=== PATIENT | female | born 1970 | race Two or more races ===

== ENCOUNTER → 2019-10-09 | Outpatient (CLI) | payer MEDICAID | END | disposition home or self-care (01) | LOC: Rad HDHVI 11:50 | PROVIDERS: ATTEND Internal Medicine | DX: R42 Dizziness and giddiness (principal); I10 Essential (primary) hypertension; Z86.79 Personal history of other diseases of the circulatory system | CPT/HCPCS: 93880 ==

== ENCOUNTER → 2019-10-26 | Outpatient (CLI) | payer MEDICAID ==
[~2019-10-26] VITALS: Ht 160 cm; Wt 104.3 kg
[~2019-10-26] MED LIST: ADENOSINE 88 MG in GIVE UN-DILUTED 0 ML IV ONE; ADENOSINE 90 MG/30 ML INJ IV ONE
== END | disposition home or self-care (01) ==
LOC: Rad HDHVI 08:05
PROVIDERS: ATTEND Internal Medicine
DX: I11.9 Hypertensive heart disease without heart failure (principal); E11.9 Type 2 diabetes mellitus without complications; R42 Dizziness and giddiness; R07.9 Chest pain, unspecified; E78.00 Pure hypercholesterolemia, unspecified
CPT/HCPCS: 78452; 93005; 93306; 96374; 96375; A9500; J0153

== ENCOUNTER → 2020-07-17 | Outpatient (CLI) | payer MEDICAID | END | disposition home or self-care (01) | LOC: Rad HDHVI 14:07 | PROVIDERS: ATTEND Internal Medicine | DX: I07.1 Rheumatic tricuspid insufficiency (principal); I10 Essential (primary) hypertension; F41.9 Anxiety disorder, unspecified; R07.9 Chest pain, unspecified | CPT/HCPCS: 93306 ==

== ENCOUNTER → 2020-08-13 | Outpatient (CLI) | payer MEDICAID ==
[~2020-08-13] VITALS: Ht 160 cm; Wt 88.9 kg
[~2020-08-13] MED LIST changes: -ADENOSINE 88 MG in GIVE UN-DILUTED 0 ML IV ONE; -ADENOSINE 90 MG/30 ML INJ IV ONE; +ASPI-543 PO; +ATOR40TA52 PO; +HCTZ25T PO; +LOSA-39 PO; +NAP500T PO; +PROP60CA34 PO; +TOPI25TA32 PO; +TRAM50TA2 PO; +VORT10TA PO; +ZOLP10TA PO
[2020-08-13 09:50] VITALS: BP 150/77
--- NOTE | 2020-08-13 09:50 | NUR ---
CLINIC PT ARRIVED TO THE CLINIC FOR LABS, EKG, CXR FOR PRE OP LHC, A/OX4, AMBULATORY, BREATHING IS EVEN AND UNLABORED.
--- NOTE | 2020-08-13 10:02 | NUR ---
EKG DONE BY MAKENZIE ALMANZAR REVIEWED BY AMI MERCER SB [id number]
[2020-08-13 10:26] VITALS: BP 163/64
--- NOTE | 2020-08-13 10:26 | NUR ---
Pre-Op Discharge Summary: See e-MAR for any medications given for this visit. Pre-op orders received and carried out per MD of EKG, LABS and chest xrays. Patient given a copy of EKG with instructions to go to [facility] out patient for further follow up care. NOTE EKG DONE BY MAKENZIE ALMANZAR REVIEWED BY LIZETTE MERCER
[2020-08-13 12:11] LABS: Basophils # (auto) 0.1 10 ^3/uL (0-0.2); Basophils % (auto) 1.2 % (0.0-2.0); Eosinophils # (auto) 0.4 10 ^3/uL (0-0.8); Eosinophils % (auto) 4.9 % (0.0-7.0); Hematocrit 36.3 % (36.0-46.0); Lymphocytes # (auto) 2.5 10 ^3/uL (0.4-5.4); Mean Corpuscular Hemoglobin 30.4 pg (28.0-32.0); Mean Corpuscular Hgb Conc. 33.1 g/dL (32.0-36.0); Mean Corpuscular Volume 91.7 fL (80.0-100.0); Monocytes # (auto) 0.3 10 ^3/uL (0-1.3); Monocytes % (auto) 4.1 % (0.0-12.0); Neutrophils # (auto) 4.8 10 ^3/uL (1.6-8.6); Neutrophils % (auto) 58.8 % (37.0-80.0); Nucleated Red Blood Cells % 0.1 %; Platelet Count (auto) 199 10^3/uL (140-450); Red Blood Cells 3.96 10^6/uL (4.0-5.20); Red Cell Distribution Width 12.8 % (11.8-14.3); White Blood Cell 8.2 10^3/uL (4.4-10.8)
[2020-08-13 12:24] LABS: INR 1.01 (0.9-1.15); Partial Thromboplastin Time 29.9 sec (23.0-31.2)
[2020-08-13 12:27] LABS: Calcium 9.3 mg/dL (8.5-10.1)
== END | disposition home or self-care (01) ==
LOC: Rad HDHVI 09:38
PROVIDERS: ATTEND Internal Medicine
DX: Z01.812 Encounter for preprocedural laboratory examination (principal); Z01.818 Encounter for other preprocedural examination; R07.9 Chest pain, unspecified; Z98.61 Coronary angioplasty status
CPT/HCPCS: 36415; 71046; 80048; 85025; 85610; 85730; 93005; G0463

== ENCOUNTER 2020-08-21 07:14 | Day surgery (SDC) | payer MEDICAID ==
[~2020-08-21] VITALS: Ht 160 cm; Wt 88.9 kg
[2020-08-21] MEDS ORDERED: IOHEXOL 350 MG/ML 100ML IJ ONE (08:18)
[2020-08-21] MEDS ORDERED: LIDOCAINE 2%HCL (LOCAL ANESTH.) INJ 20ML MDV ONE (08:18)
[2020-08-21] MEDS ORDERED: HEPARIN IN NS 1000Units/500mL 1,500 ML ONE (08:18)
[2020-08-21] MEDS ORDERED: ANGIOMAX 250 MG VIAL IV ONE (08:37)
[2020-08-21] MEDS ORDERED: VERAPAMIL 2.5MG/ML INJ 2ML VIAL IV ONE (08:37)
[2020-08-21] MEDS ORDERED: HEPARIN SODIUM (PORCINE) 5000 UNITS/ML 1ML VIAL ONE (08:38)
[2020-08-21] MEDS ORDERED: SODIUM CHL 0.9% 0 ML ONE (08:38)
[2020-08-21] MEDS ORDERED: fentaNYL CITRATE 100 MCG/2 ML VL ONE (08:38)
[2020-08-21] MEDS ORDERED: MIDAZOLAM HCL 1MG/1ML-2 ML VIAL ONE (08:38)
[2020-08-21] MEDS ORDERED: HYDROcodone-ACET 5/325MG TAB PO PRN (09:30)
[2020-08-21] MEDS ORDERED: ONDANSETRON HCL 4 MG/2 ML VIAL IV PRN (09:30)
[2020-08-21] MEDS ORDERED: ACETAMINOPHEN 500 MG TAB PO PRN (09:30)
== END 2020-08-21 12:36 | disposition home or self-care (01) ==
LOC: CATH 07:14
PROVIDERS: ATTEND Internal Medicine
DX: I25.10 Atherosclerotic heart disease of native coronary artery without angina pectoris (principal); I10 Essential (primary) hypertension; E78.5 Hyperlipidemia, unspecified; Z79.899 Other long term (current) drug therapy; Z79.82 Long term (current) use of aspirin; Z20.828 Contact with and (suspected) exposure to other viral communicable diseases; Z88.6 Allergy status to analgesic agent; Z98.890 Other specified postprocedural states; Z68.34 Body mass index [BMI] 34.0-34.9, adult
CPT/HCPCS: 93458; C1887; C1894; J1644; J2250; J3010; J7030; Q9967; U0003; 99152

== ENCOUNTER 2025-05-30 08:24 | Day surgery (SDC) | payer MEDICAID ==
[2025-05-25 11:41] LABS: Hematocrit 39.1 % (36.0-46.0); Hemoglobin 12.8 g/dL (12.2-16.2); Mean Corpuscular Hemoglobin 30.0 pg (28.0-32.0); Mean Corpuscular Volume 91.7 fL (80.0-100.0); Nucleated Red Blood Cells % 0.0 %
[2025-05-25 11:54] LABS: INR 1.05 (0.9-1.15); Partial Thromboplastin Time 27.9 SEC (24.5-34.5); Prothrombin Time 11.1 sec (9.3-11.8)
[2025-05-25 11:58] LABS: Alanine Aminotransferase 16 U/L (7-40); Albumin 5.0 g/dL (3.2-4.8); Alkaline Phosphatase 126 U/L (46-116); Anion Gap 8 (5-15); BUN/Creatinine Ratio 10.5 (10.0-20.0); Bilirubin, Total 0.4 mg/dL (0.2-1.0); Blood Urea Nitrogen 6 mg/dL (9-23); Calcium 9.7 mg/dL (8.7-10.4); Carbon Dioxide 24 mmol/L (20-31); Chloride 107 mmol/L (98-107); Glucose 104 mg/dL (74-106); Potassium 3.8 mmol/L (3.5-5.1); Sodium 139 mmol/L (136-145); Total Protein 7.6 g/dL (5.7-8.2)
[2025-05-25 12:32] LABS: Urine Protein, UAD Negative (Negative)
[~2025-05-30] VITALS: Ht 160 cm; Wt 103.4 kg
[~2025-05-30 08:24] MED LIST changes: +AMLO1TAB21 PO; +CHOL20004 PO; +EZET-10 PO; +FOLI-119 PO; -HCTZ25T PO; +LEFL1TAB3 PO; +LIDO1.8P EX; -LOSA-39 PO; +LOSA-534 PO; +METF-370 PO; -NAP500T PO; +PILO5TAB10 PO; -PROP60CA34 PO; +SEMA2INJ3 SC; +SULF500T57 PO; -TOPI25TA32 PO; -TRAM50TA2 PO; -VORT10TA PO; -ZOLP10TA PO
[2025-05-30] MEDS ORDERED: PROPRANOLOL HCL 1 MG/ML VIAL IV ONE (08:25)
[2025-05-30] MEDS ORDERED: SODIUM CHLORIDE LOCK 10 ML ONE ×2 (08:49→10:34)
[2025-05-30] MEDS ORDERED: ceFAZolin 2 GM/D5W50ml 50 ML IV ONE (08:55)
[2025-05-30] MEDS ORDERED: ONDANSETRON HCL 4 MG/2 ML VIAL ONE (09:25)
[2025-05-30] MEDS ORDERED: LIDOCAINE 1% INJ PF 5ML AMP ONE (09:25)
[2025-05-30] MEDS ORDERED: PROPOFOL 10 MG/ML 20 ML IV ONE ×4 (09:25→10:53)
[2025-05-30] MEDS ORDERED: KETAMINE 50mg/ML 1ml syringe ONE (09:25)
[2025-05-30] MEDS ORDERED: GLYCOPYRROLATE 0.2 MG/ML 1ML VIAL ONE (09:25)
[2025-05-30] MEDS ORDERED: KETOROLAC TROMETH 30 MG/ML 1ML VIAL ONE (09:25)
[2025-05-30] MEDS: GABAPENTIN 300 MG CAP PO ONE (09:30)
[2025-05-30] MEDS: ACETAMINOPHEN IV 1000 MG/100ML (10MG/ML) IV ONE (09:30)
[2025-05-30] MEDS ORDERED: CELECOXIB 100 MG CAP PO ONE (09:45)
--- NOTE | 2025-05-30 10:01 | DVHOP2 ---
Operative Report - 2 Report Details Date: 05/30/25 Preop Diagnosis: 1. Left foot navicular avascular necrosis 2. Left foot pain Postop Diagnosis: Left navicular AVN Surgeon: Beverly Ann MD Anesthesiologist: See anesthesia Anesthesia: Mac Implant: Calcium phosphate Consent: The patient was informed of the risks and benefits of the procedure. These include but are not limited to complications of anesthesia, postoperative infection, incomplete relief of symptoms, recurrence of symptoms, damage to blood vessels, nerves and tendons, deep venous thrombosis, pulmonary embolism and possible need for repeat surgery in the future. Complications: None Estimated Blood Loss: Minimal Fluids: See anesthesia Findings: Consistent with diagnosis Indications for Surgery: Worsening left foot pain Name of Procedure Performed 1. Left foot navicular ORIF (23309) 2. Left foot bone marrow aspirate (49850) Procedure Details Procedure Details: PRE-PROCEDURE INFORMATION: In the pre-op holding area, the extremity to be operated on was clearly marked and the patient verified correct laterality of the marking. The patient was transferred to the OR table and placed in a supine position. A timeout was performed in which identification of the correct patient, procedure, location, and materials was done. The left foot and leg were prepped and draped in normal sterile fashion. DESCRIPTION OF PROCEDURE: Attention was directed to the left lateral heel where a stab incision was made to gain access to the calcaneus. A trocar was then placed into the calcaneus to gain access to the bone marrow aspirate. Using a 30 cc syringe, approximately 40 cc of bone marrow aspirate was removed. The bone marrow aspirate was then placed in a central fusion and combined with the calcium phosphate. Attention was directed to the left medial foot, where a stab incision was made to gain access to the navicular. A small drill hole was made to gain access to the middle aspect of the navicular. The trocar was then placed over the drill. Using a proximally 3 cc of the calcium phosphate mixed with the bone marrow aspirate, it was placed into the navicular bone. It was noted on intraoperative fluoroscopy those good reduction of the fracture and appropriate placement of the calcium phosphate. Both incisions were closed with 4-0 nylon. All surgical wounds were irrigated copiously with saline and closed in layers with the aforementioned suture material. A dry sterile dressing was placed on the surgical extremity. The patient was placed in a cam boot POSTOPERATIVE INFORMATION: The patient tolerated the above noted procedure and anesthesia well and was transferred to the PACU with vital signs stable, and vascular status intact with capillary refill intact to all digits. Postoperative instructions reviewed in detail with the patient with written instructions provided. Patient will return to clinic in approximately 10-14 days for first postoperative visit. Patient has the number of the clinic and was instructed to call prior to that time should any problems, questions, or concerns arise. Condition Good Disposition Home Visit Coding Podiatry Date of Service if different f: May 30, 2025 Billing Provider: BEVERLY ANN DPM Podiatry Common Visit Codes: PROCEDURE ONLY BEVERLY ANN DPM May 30, 2025 10:01
[2025-05-30] MEDS: BUPIVACAINE 0.5% MPF INJ 30ML SDV IJ ONE (10:14)
[2025-05-30] MEDS ORDERED: PHENYLEPHRINE HCL 10 MG/ML VL ONE (10:34)
[2025-05-30] MEDS: HEPARIN SODIUM (PORCINE) 5000 UNITS/ML 1ML VIAL ONE (11:00)
[2025-05-30] MEDS: IOHEXOL 300 MG/ML 100ML BOTTLE IJ ONE (11:00)
[2025-05-30 11:16] VITALS: TEMP 97.6; O2SAT 99
[2025-05-30] MEDS ORDERED: hydrALAZINE HCL 20 MG/ML VL IV PRN (11:30)
[2025-05-30] MEDS ORDERED: fentaNYL CITRATE 100 MCG/2 ML VL IV PRN (11:30)
[2025-05-30] MEDS ORDERED: FLUMAZENIL 0.1 MG/ML INJ 10ML MDV IV PRN (11:30)
[2025-05-30] MEDS ORDERED: NALOXONE HCL 0.4 MG/ML VIAL IV PRN (11:30)
[2025-05-30] MEDS ORDERED: HYDROmorphone HCL 2 MG/ML VL/or syr ONE (11:32)
[2025-05-30] MEDS: HYDROmorphone HCL 2 MG/ML VL/or syr IV PRN (11:32)
[2025-05-30] MEDS: ONDANSETRON HCL 4 MG/2 ML VIAL IV PRN (11:50)
[2025-05-30 12:16] VITALS: BP 121/67; PULSE 67; RESP 17; O2SAT 94
[2025-06-01] MEDS ORDERED: CARBOPROST TROMETHAMINE 250 MCG/1ML VIAL IM ONE (09:19)
== END 2025-05-30 12:25 | disposition home or self-care (01) ==
LOC: SUR 08:24
PROVIDERS: ATTEND Podiatrist
DX: M87.875 Other osteonecrosis, left foot (principal); M87.872 Other osteonecrosis, left ankle; M79.672 Pain in left foot; E11.9 Type 2 diabetes mellitus without complications; Z90.49 Acquired absence of other specified parts of digestive tract; Z98.890 Other specified postprocedural states
CPT/HCPCS: 0707T; 36415; 38232; 80053; 81001; 82962; 84702; 85025; 85610; 85730; C1713; J0690; J1100; J1171; J1644; J1800; J1885; J2371; J2405; J2704; J3490; Q9967; J0131